=== PATIENT | female | born 1950 | race Caucasian/White ===

== ENCOUNTER 2016-08-05 10:54 | Inpatient (IN) | payer OTHER, BC ==
[~2016-08-05] VITALS: Ht 154.9 cm; Wt 103.4 kg
--- NOTE | ~2016-08-05 | P ---
[facility] [place] [address] PROCEDURE REPORT Name: LYLE MCFARLANE Room #: 442-P ADM IN M.R.#: [id number] Admission: 08/05/16 Attend Phys: Ofelia Jimenez MD Discharge: Date of : 54 Report #: [id number] THIS REPORT FOR: //name// CC: Ofelia Perez MD DATE OF SERVICE: 08/07/2016 PROCEDURE: EGD with biopsies. Patient of Dr. Mohit Perez and Dr. Jimenez. INDICATION FOR PROCEDURE: This patient has chest pain, undetermined etiology. Cardiac etiology has been excluded. The patient describes the chest pain as beginning in her left lower chest anteriorly and then radiating around her breast up into the upper chest and across to her sternum. The pain is reproducible with pressure over the costochondritic margins suggesting that this may be costochondritis; however, the pain lowered down in her left chest is more lateral and anterior in orientation. She thinks that she has had this pain before and that it was from a pleural effusion. She has not been having any problems with dysphagia or odynophagia. She does have gastroesophageal reflux. Informed consent for this procedure was obtained prior to the administration of any medication. The risks of the procedure which include bleeding, perforation, infection, complications of sedation and the possibility I could miss something have been explained to the patient and she has indicated her consent by signing. Propofol was slowly titrated before and during this procedure for patient comfort by the anesthesia service. The Fujinon upper videoscope was introduced through the upper esophageal sphincter and advanced under direct visualization to the second portion of the duodenum. Findings are noted on withdrawal of the scope. The duodenal mucosa appears normal throughout its entirety. Pylorus, normal mucosa. Antrum, erythematous mucosa. Body, erythematous mucosa. Cardia and fundus, mildly erythematous mucosa. Retroflex view did not reveal any abnormalities. Scope was withdrawn to the esophagus. The Z-line is a little bit proximal to where I expected to be at the top of the gastric folds. 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 It is a very irregular line as well, consistent with this diagnosis. The esophageal mucosa itself appears normal throughout its entirety. I saw no abnormalities, no intrinsically or extrinsically compressing lesions were found. The scope was withdrawn. The patient went to the recovery area in stable condition. She tolerated the procedure well. IMPRESSION: [facility] [address] [place] [address] PROCEDURE REPORT Name: LYLE MCFARLANE Room #: 442-P [facility] IN M.R.#: [id number] Admission: 08/05/16 Attend Phys: Ofelia Jimenez MD Discharge: Date of : 54 Report #: [id number] 1. 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 2. Diffuse gastritis, biopsies taken x 2 from the antrum and body of the stomach for histopathology. 3. Normal duodenum. RECOMMENDATIONS: To await the biopsy results. I agree with the proton pump inhibitors. We will start her on a low sodium, heart healthy diet. Because the chest pain does not appear to be from a GI source, but can be reproduced at least in part by costochondritic pressure on the left side, it may be worthwhile to try to give her some nonsteroidals to decrease the inflammation in these joints. 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 Thank you very much once again for allowing me to participate in her care, Dr. Rueda and Dr. Jimenez. <ELECTRONICALLY SIGNED> By: Sabiha Rader DO 08/07/16 1605 1436 1503 Sabiha Rader DO /nt
--- NOTE | ~2016-08-05 | 2DMMODE ---
[facility] [employer] [place] [address] 2 D/M-MODE ECHOCARDIOGRAM Name: LYLE MCFARLANE VÍCTOR Room #: 442-P ADM IN M.R.#: [id number] Admission: 08/05/16 Attend Phys: Ofelia Jimenez Discharge: Date of : 54 Date of Service: 08/06/16 1014 Report #: [id number] THIS REPORT FOR: //name// APPROVED REPORT EXAM: Comprehensive 2D, Doppler, and color-flow Echocardiogram Patient Location: In-Patient Room 442/ Echo lab Blood Pressure: 153/78 mmHg HR: 82 bpm Other Information Study Quality: Adequate Indications Chest pain, elevated BNP. Hx: DM, CVA 2D Dimensions RVDd: 35.34 mm LVEF(%): 51.50 (>50%) IVSd: 11.39 (7-11mm) LVOT Diam: 20.40 (18-24mm) LVDd: 46.98 mm PWd: 11.07 (7-11mm) LVDs: 34.63 (25-40mm) Aortic Root: 35.00 mm Perry's LVEF: 51.50 % Volumes Left Atrial Volume (Systole) Single Plane 4CH: 54.74 mL Single Plane 2CH: 65.67 mL LA ESV Index: 32.00 mL/m2 Aortic Valve AoV Peak Jarrell.: 1.57 m/s AO Peak Gr.: 9.88 mmHg LV Max P.12 mmHg LV Max: 1.33 m/s Mitral Valve MV PHT: 52.91 ms MV E Max Jarrell.: 0.85 m/s E/A Ratio: 0.8 MV A Jarrell.: 1.02 m/s MV Decel. Time: 182.46 ms Pulmonary Valve PV Peak Jarrell.: 1.20 m/s PV Peak Gr.: 5.78 mmHg [facility] [place] [address] [place] [address] 2 D/M-MODE ECHOCARDIOGRAM Name: BRANDTVALENTÍNLYLE THE COLONY Room #: 442-P [facility] IN ..#: [id number] Admission: 08/05/16 Attend Phys: Ofelia Jimenez Discharge: Date of : 54 Date of Service: 08/06/16 1014 Report #: [id number] Tricuspid Valve TR Peak Jarrell.: 2.47 m/s RAP Estimate: 5.00 mmHg TR Peak Gr.: 24.40 mmHg RVSP: 29.00 mmHg Left Ventricle The left ventricle is normal size. There is normal LV segmental wall motion. There is normal left ventricular wall thickness. Left ventricular systolic function is normal. LVEF is 55-60%. Grade I - abnormal relaxation pattern. Right Ventricle The right ventricle is normal size. The right ventricular systolic function is normal. Atria The left atrium size is normal. The right atrium size is normal. Aortic Valve Aortic valve is grossly normal in structure. Aortic valve leaflets are mildly thickened. No aortic regurgitation is present. There is no aortic valvular stenosis. Mitral Valve Mitral valve leaflets are mildly thickened. Mild mitral regurgitation. Tricuspid Valve The tricuspid valve is normal in structure. There is trace tricuspid regurgitation. The right atrial pressure is estimated at 5 mmHg. Estimated PAP of 29mmHg. Pulmonic Valve The pulmonary valve is normal in structure. There is no pulmonic valvular regurgitation. Great Vessels The aortic root is normal in size. Ascending aorta is not well visualized. IVC is normal in size and collapses >50% with inspiration. Pericardium There is no pericardial effusion. <Conclusion> [facility] [address] [place] [address] 2 D/M-MODE ECHOCARDIOGRAM Name: LYLE MCFARLANE Room #: 442-P [facility] IN M.R.#: [id number] Admission: 08/05/16 Attend Phys: Ofelia Jimenez Discharge: Date of : 54 Date of Service: 08/06/16 1014 Report #: [id number] The left ventricle is normal size. LVEF is 55-60%. Aortic valve is grossly normal in structure. Aortic valve leaflets are mildly thickened. Mitral valve leaflets are mildly thickened. Mild mitral regurgitation. There is trace tricuspid regurgitation. The right atrial pressure is estimated at 5 mmHg. Estimated PAP of 29mmHg. There is no pulmonic valvular regurgitation. <ELECTRONICALLY SIGNED> By: Ovidio Smith MD 08/06/16 1014 1014 1014 Ovidio Smith MD /INF
--- NOTE | ~2016-08-05 | S ---
[facility] [place] [address] SURGICAL PATH RPT PROCEDURE Name: AALIYAH CABRERA Room #: 442-P ADM IN M.R.#: [id number] Admission: 08/05/16 Date of : 54 Discharge: Report #: [id number] Path Case #: [id number] PATHOLOGY REPORT COLLECTION DATE: 08/07/2016 RECEIVED DATE: 08/07/2016 SUBMITTING PHYS: Dr. Sabiha Rader OTHER PHYS: Dr. Ofelia Perez SPECIMEN(S) RECEIVED: A.Gastric - gastritis - r/o H. pylori * * * * * * * * * * * * FINAL DIAGNOSIS: "Gastric gastritis R/O H pylori", biopsy: - Gastric mucosa with mild reactive changes and mild chronic inflammation. - Negative H. pylori immunohistochemical stain (block A1); control reacted appropriately. (CLW:jd; d/t: 08/08/2016) PATHOLOGIST: Sunita Monaco M.D. REPORT ELECTRONICALLY SIGNED BY: Sunita Monaco M.D. DATE/TIME: 08/08/2016 16:31 * * * * * * * * * * * * GROSS PATHOLOGY: Received in formalin labeled "Aaliyah Cabrera, gastric," are three segments of cisneros soft tissue measuring 0.7 x 0.6 x 0.1 cm in aggregate dimensions and ranging from 0.3 to 0.5 cm in maximum dimension. The specimen is submitted entirely in cassette A1. (CAA; 08/07/2016) CLINICAL HISTORY: Chest pain, R/O H. pylori INITIAL CPT CODE(S): A; 63358, 95505 Professional services performed by [facility] at [facility] [address], [place] [address] Technical services performed by [facility] at [address] [place] [id number]. [facility] [address] [place] [address] SURGICAL PATH RPT PROCEDURE Name: MAEVEAALIYAH VÍCTOR Room #: 442-P ADM IN M.R.#: [id number] Admission: 08/05/16 Date of : 54 Discharge: Report #: [id number] Path Case #: [id number] [facility] [address] [address] PHONE: [phone] DIRECTOR: Michel Santiago M.D. * * * END OF REPORT * * *
--- NOTE | ~2016-08-05 | EKG ---
[address] [address] ELECTROCARDIOGRAM REPORT Name: LYLE MCFARLANE VÍCTOR Room #: 442-P ADM IN M.R.#: [id number] Admission: 08/05/16 Attend Phys: Ofelia Jimenez MD Discharge: Date of : 54 Report #: [id number] THIS REPORT FOR: //name// 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
[~2016-08-05 10:54] MED LIST: ACTOS15 MG PO; ALBUTEROL2.5 MG/0.5 INH; ASPIRIN81 M2 PO; BACTRIM DS TAB1 EACH PO; BISACODYL SUPP10 MG RECTAL; CALCIUM CARBO1000 MG PO; CIPRO HC OTIC S10 ML OT; CRESTOR10 MG PO; CYMBALTA60 MG PO; FUROSEMIDE 40 M40 M1 PO; GLIPIZIDE ER2.5 MG PO; GLIPIZIDE XL10 MG PO; GLUCOPHAGE; INDAPAMIDE2.5 MG PO; KLOR-CON 10 ER10 MEQ PO; LEVEMIR SUBQ; LISINOPRIL10 MG PO; LORTAB 5 MG/5001 TAB PO; MEDROLDOSEPACK PO; METFORMIN HCL500 M2 PO; NORCO 5-325 TA1 EACH PO; PERCOCET 5-3251 EACH PO; PROVENTIL HFA6.7 G1 INH; PROVENTIL17 G1 IH; SENOKOT-S1 TA1 PO; SINGULAIR 10 MG10 M1 PO; TIZANIDINE HCL4 MG PO; VENTOLIN HFA 1818 GM INH; VIBRAMYCIN100 MG PO; VICODIN 5-5001 EACH PO; ZOFRAN4 MG PO
[2016-08-05 10:56] VITALS: BP 195/77
[2016-08-05 11:16] LABS: HEMATOCRIT 40.9 % (37.0-47.0); HEMOGLOBIN 13.9 gm/dL (12.0-15.0); MCH 29.6 pg (26.0-34.0); MCHC 34.1 g/dL (28.0-37.0); MCV 86.9 fL (80.0-100.0); PLATELET COUNT 231 thou/uL (150-400); RBC 4.71 mil/uL (4.20-5.00); RDW 13.7 % (10.5-14.5)
[2016-08-05 11:17] LABS: MANUAL DIFF YES
[2016-08-05 11:29] LABS: ANION GAP 9 mmol/L (7-16); BUN 19 mg/dL (7-18); CALCIUM 9.6 mg/dL (8.5-10.1); CHLORIDE 93 mmol/L (98-107); CO2 29 mmol/L (21-32); CREATININE 1.3 mg/dL (0.6-1.3); GLUCOSE 471 mg/dL (70-99); POTASSIUM 3.7 mmol/L (3.5-5.1); SODIUM 131 mmol/L (136-145)
[2016-08-05 11:41] LABS: NT-PRO BRAIN NAT PEPTIDE 627 pg/mL (<300); TROPONIN-I < 0.04 ng/mL (<0.04-0.07)
[2016-08-05 12:38] LABS: ABSOLUTE NEUTROPHILS 12.2 thou/uL (1.4-8.2); PLATELET ESTIMATE NORMAL; TOTAL CELL COUNT 100
[2016-08-05 15:00] VITALS: BP 170/74
[2016-08-05 18:31] VITALS: BP 158/57
[2016-08-05 19:40] VITALS: BP 141/71
[2016-08-05 21:11] LABS: GLYCOHEMOGLOBIN (HGB A1C) 12.5 % (4.8-5.6)
[2016-08-05 23:28] VITALS: BP 134/61
[2016-08-06 03:48] VITALS: BP 162/68
[2016-08-06 05:25] LABS: ABSOLUTE NEUTROPHILS 9.6 thou/uL (1.4-8.2); BASOPHILS 0.5 % (0.0-2.0); EOSINOPHILS 0.4 % (0.0-3.0); HEMATOCRIT 37.5 % (37.0-47.0); HEMOGLOBIN 12.8 gm/dL (12.0-15.0); LYMPHOCYTES 15.4 % (24.0-44.0); MANUAL DIFF NO; MCHC 34.2 g/dL (28.0-37.0); MCV 87.7 fL (80.0-100.0); MONOCYTES 7.5 % (1.0-8.0); PLATELET COUNT 223 thou/uL (150-400); POLYS 76.2 % (36.0-66.0); RBC 4.28 mil/uL (4.20-5.00); RDW 13.8 % (10.5-14.5); WBC 12.6 thou/uL (4.0-11.0)
[2016-08-06 05:46] LABS: ALBUMIN 2.6 g/dL (3.4-5.0); ALKALINE PHOSPHATASE 123 U/L (46-116); ANION GAP 7 mmol/L (7-16); BUN 16 mg/dL (7-18); CALCIUM 8.7 mg/dL (8.5-10.1); CHLORIDE 98 mmol/L (98-107); CHOLESTEROL 172 mg/dL (<200); CO2 31 mmol/L (21-32); CREATININE 1.2 mg/dL (0.6-1.3); GLUCOSE 216 mg/dL (70-99); HDL CHOLESTEROL 65 mg/dL (>40); LDL CHOLESTEROL 84 mg/dL (<100); MAGNESIUM 1.5 mg/dL (1.8-2.4); SGOT 12 U/L (15-37); SGPT 15 U/L (30-65); SODIUM 136 mmol/L (136-145); TC:HDL 2.6 Ratio (Not establshd); TOTAL BILIRUBIN 0.5 mg/dL (<0.1-1.0); TOTAL PROTEIN 6.7 g/dL (6.4-8.2); TRIGLYCERIDE 116 mg/dL (<150); VLDL 23 mg/dL (<40)
[2016-08-06 07:45] VITALS: BP 153/78
[2016-08-06 12:09] VITALS: BP 111/68
[2016-08-06 13:24] LABS: MAGNESIUM 1.5 mg/dL (1.8-2.4)
[2016-08-06 13:28] LABS: POTASSIUM 2.9 mmol/L (3.5-5.1)
[2016-08-06 16:08] VITALS: BP 139/81
[2016-08-06 19:07] LABS: MAGNESIUM 1.6 mg/dL (1.8-2.4); POTASSIUM 3.4 mmol/L (3.5-5.1)
[2016-08-06 19:10] VITALS: BP 138/73
[2016-08-07 03:54] LABS: MAGNESIUM 1.6 mg/dL (1.8-2.4); POTASSIUM 3.6 mmol/L (3.5-5.1)
[2016-08-07 04:10] VITALS: BP 106/59
[2016-08-07 06:17] LABS: ABSOLUTE NEUTROPHILS 7.9 thou/uL (1.4-8.2); BASOPHILS 0.6 % (0.0-2.0); EOSINOPHILS 1.7 % (0.0-3.0); HEMATOCRIT 33.6 % (37.0-47.0); HEMOGLOBIN 11.3 gm/dL (12.0-15.0); LYMPHOCYTES 20.1 % (24.0-44.0); MCH 29.1 pg (26.0-34.0); MCHC 33.6 g/dL (28.0-37.0); MCV 86.9 fL (80.0-100.0); MONOCYTES 7.2 % (1.0-8.0); PLATELET COUNT 226 thou/uL (150-400); POLYS 70.4 % (36.0-66.0); RBC 3.87 mil/uL (4.20-5.00); WBC 11.2 thou/uL (4.0-11.0)
[2016-08-07 06:20] LABS: MANUAL DIFF NO
[2016-08-07 06:36] LABS: CALCIUM 8.6 mg/dL (8.5-10.1); CREATININE 1.8 mg/dL (0.6-1.3); MAGNESIUM 1.8 mg/dL (1.8-2.4)
[2016-08-07 07:50] VITALS: BP 116/60
[2016-08-07 11:09] VITALS: BP 113/57
[2016-08-07 16:18] VITALS: BP 152/72
[2016-08-07 20:00] VITALS: BP 110/51
[2016-08-08 03:35] VITALS: BP 122/70
[2016-08-08 05:38] LABS: ABSOLUTE NEUTROPHILS 6.1 thou/uL (1.4-8.2); EOSINOPHILS 2.4 % (0.0-3.0); HEMATOCRIT 32.4 % (37.0-47.0); HEMOGLOBIN 10.9 gm/dL (12.0-15.0); LYMPHOCYTES 24.7 % (24.0-44.0); MCH 29.3 pg (26.0-34.0); MCHC 33.7 g/dL (28.0-37.0); MCV 86.9 fL (80.0-100.0); MONOCYTES 6.6 % (1.0-8.0); PLATELET COUNT 228 thou/uL (150-400); POLYS 65.3 % (36.0-66.0); RBC 3.72 mil/uL (4.20-5.00); RDW 13.9 % (10.5-14.5); WBC 9.4 thou/uL (4.0-11.0)
[2016-08-08 05:41] LABS: MANUAL DIFF NO
[2016-08-08 05:49] LABS: CALCIUM 8.6 mg/dL (8.5-10.1); CREATININE 2.4 mg/dL (0.6-1.3); POTASSIUM 4.4 mmol/L (3.5-5.1)
[2016-08-08 08:00] VITALS: BP 115/65
[2016-08-08 12:00] VITALS: BP 100/58
[2016-08-08 16:00] VITALS: BP 162/77
[2016-08-08 20:00] VITALS: BP 170/75
[2016-08-08 20:10] VITALS: BP 122/53
[2016-08-09 04:00] VITALS: BP 145/77
[2016-08-09 06:28] LABS: HEMATOCRIT 32.1 % (37.0-47.0); HEMOGLOBIN 10.9 gm/dL (12.0-15.0); MCH 29.6 pg (26.0-34.0); MCV 86.8 fL (80.0-100.0); RBC 3.69 mil/uL (4.20-5.00); RDW 13.8 % (10.5-14.5); WBC 8.4 thou/uL (4.0-11.0)
[2016-08-09 08:00] VITALS: BP 157/79
[2016-08-09 08:49] LABS: CALCIUM 8.7 mg/dL (8.5-10.1); CREATININE 1.8 mg/dL (0.6-1.3); POTASSIUM 4.7 mmol/L (3.5-5.1)
[2016-08-09] MEDS ORDERED: DOXYCYCLINE 10100 MG PO ×2 (13:14→14:39)
[2016-08-09] MEDS ORDERED: GLYBURIDE 2.52.5 MG PO (13:25)
[2016-08-09 14:22] VITALS: BP 157/79
== END 2016-08-09 15:30 | disposition home or self-care (01) | DRG 205 ==
LOC: ER 10:54 → EROBS 13:23 → 4S 13:23
PROVIDERS: Emergency Medicine; Family Medicine; Hospitalist; Internal Medicine; Nurse Practitioner; Nurse Practitioner Gerontology
PROC: 0DB68ZX Excision of Stomach, Via Natural or Artificial Opening Endoscopic, Diagnostic (ICD-10-PCS; principal; 2016-08-07)
DX: M94.0 Chondrocostal junction syndrome [Tietze] (principal); E43 Unspecified severe protein-calorie malnutrition; N17.9 Acute kidney failure, unspecified; Z68.41 Body mass index [BMI] 40.0-44.9, adult; K58.0 Irritable bowel syndrome with diarrhea; Z96.643 Presence of artificial hip joint, bilateral; J45.909 Unspecified asthma, uncomplicated; D72.829 Elevated white blood cell count, unspecified; Z96.651 Presence of right artificial knee joint; K29.70 Gastritis, unspecified, without bleeding; E11.65 Type 2 diabetes mellitus with hyperglycemia; E87.6 Hypokalemia; E83.42 Hypomagnesemia; Z86.14 Personal history of Methicillin resistant Staphylococcus aureus infection; Z85.3 Personal history of malignant neoplasm of breast; Z79.899 Other long term (current) drug therapy; Z86.73 Personal history of transient ischemic attack (TIA), and cerebral infarction without residual deficits; Z88.0 Allergy status to penicillin; Z88.1 Allergy status to other antibiotic agents; Z90.49 Acquired absence of other specified parts of digestive tract
CPT/HCPCS: 10100; 62110; 62900; 70005